=== PATIENT | male | born 1990 | race American Indian/Alaskan Native ===

== ENCOUNTER 2020-10-14 15:42 | Emergency (ER) | payer SELFPAY ==
--- NOTE | 2020-10-14 16:22 | Event Note ---
ED Screening Note Date of service: 10/14/20 Time: 16:18 ED Screening Note: 30-year-old -Stateless male that is morbid obese presents to the emergency room for intermittent chest pain that is dull and achy that is gotten worse today. Patient states over the last 2 months he has noticed an increase in episodes of chest pain. 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 Patient is currently on no no primary care provider. He does not have any shortness of breath. Patient does admit that he has gained some weight in the last year secondary to Covid. Denies any nausea no vomiting no radiation to the jaw or left arm but does have radiation to the back. Nothing really makes it worse nothing really makes it better but does admit he is under increased stress. Patient denies any past medical history reports he does not take any medications on a daily basis and does not have a primary care provider. This initial assessment/diagnostic orders/clinical plan/treatment(s) is/are subject to change based on patients health status, clinical progression and re- assessment by fellow clinical providers in the ED. Further treatment and workup at subsequent clinical providers discretion. Patient/guardian urged not to elope from the ED as their condition may be serious if not clinically assessed and managed. Initial orders include:
--- NOTE | 2020-10-14 16:40 | XRay Report ---
XR chest routine 2V INDICATION / CLINICAL INFORMATION: Chest Pain. COMPARISON: None available. FINDINGS: SUPPORT DEVICES: None. HEART /PULMONARY VASCULATURE: No significant abnormality. LUNGS / PLEURA: No significant pulmonary or pleural abnormality. No pneumothorax. ADDITIONAL FINDINGS: No significant additional findings. IMPRESSION: 1. No acute findings. Signer Name: Jakob Savage MD Signed: 10/14/2020 4:35 PM Workstation Name: [id number]
[2020-10-14 16:55] LABS: Basophils # (Auto) 0.1 K/mm3 (0.0-0.1); Basophils % (Auto) 0.7 % (0.0-1.8); Eosinophils % (Auto) 0.5 % (0.0-4.3); Hematocrit 43.9 % (35.5-45.6); Hemoglobin 14.8 gm/dl (11.8-15.2); Lymphocytes # (Auto) 2.4 K/mm3 (1.2-5.4); Lymphocytes % (Auto) 30.4 % (13.4-35.0); Mean Corpuscular HGB Conc 34 % (32-34); Mean Corpuscular Volume 89 fl (84-94); Monocytes # (Auto) 0.6 K/mm3 (0.0-0.8); Monocytes % (Auto) 7.8 % (0.0-7.3); Platelet Count 253 K/mm3 (140-440); Red Blood Count 4.96 M/mm3 (3.65-5.03); Red Cell Distribution Width 12.5 % (13.2-15.2)
[2020-10-14 17:14] LABS: Alanine Aminotransferase 21 units/L (7-56); Albumin 4.9 g/dL (3.9-5); BUN/Creatinine Ratio 11; Blood Urea Nitrogen 11 mg/dL (9-20); Calcium 9.8 mg/dL (8.4-10.2); Hemolysis Index 7
--- NOTE | 2020-10-14 22:13 | Emergency Department Report ---
ED Chest Pain HPI - General Chief Complaint: Chest Pain Stated Complaint: CHEST PAIN Time Seen by Provider: 10/14/20 21:53 Source: patient Mode of arrival: Ambulatory Limitations: No Limitations - History of Present Illness Initial Comments: 30-year-old male, no past medical history, presents to ED with an episode of chest pain. 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 Patient states the pain radiated to his back, underneath the right shoulder blade. Patient states the pain lasted for appr oximately 5 to 10 minutes and then resolved. He denies any associated nausea or vomiting, denies shortness of breath. He denies any leg pain or swelling. Patient states he has been having chest pain off and on for approximately 2 months now. Patient reports positive tobacco use. He denies any chest pain currently. MD Complaint: chest pain -: This afternoon Pain Location: substernal Pain Radiation: back Severity: moderate Quality: sharp Consistency: now resolved Improves With: nothing Worsens With: nothing re: diaphoresis. denies: nausea, vomting, dyspnea Other Symptoms: denies: cough, fever, leg swelling - Related Data Allergies Allergy/AdvReac Type Severity Reaction Status Date / Time grass pollen Allergy Swelling Verified 10/14/20 15:44 Heart Score - HEART Score History: Slightly suspicious EKG: Normal Age: < 45 Risk factors: 1-2 risk factors Troponin: < normal limit HEART Score: 1 ED Review of Systems ROS: Stated complaint: CHEST PAIN Other details as noted in HPI Comment: All other systems reviewed and negative Constitutional: denies: chills, fever Respiratory: denies: cough, shortness of breath Cardiovascular: chest pain Gastrointestinal: denies: nausea, vomiting Musculoskeletal: other (Denies leg pain or swelling) ED Past Medical Hx - Past Medical History Previous Medical History?: No - Surgical History Past Surgical History?: Yes Additional Surgical History: cyst removal - Social History Smoking Status: Current Every Day Smoker Substance Use Type: None ED Physical Exam - General Limitations: No Limitations General appearance: alert, in no apparent distress, obese - Head Head exam: Present: atraumatic, normocephalic - Eye Eye exam: Present: normal appearance, EOMI - ENT ENT exam: Present: mucous membranes moist - Neck Neck exam: Present: normal inspection - Respiratory Respiratory exam: Present: normal lung sounds bilaterally. Absent: respiratory distress - Cardiovascular Cardiovascular Exam: Present: regular rate, normal rhythm - GI/Abdominal GI/Abdominal exam: Present: soft. Absent: distended, tenderness - Extremities Exam Extremities exam: Present: normal inspection. Absent: pedal edema, calf tenderness - Neurological Exam Neurological exam: Present: alert, oriented X3 - Psychiatric Psychiatric exam: Present: normal affect, normal mood - Skin Skin exam: Present: warm, dry, intact, normal color ED Course Vital Signs 10/14/20 10/14/20 15:44 23:19 Temperature 97.9 F 98.2 F Pulse Rate 72 77 Respiratory 18 18 Rate Blood Pressure 166/99 Blood Pressure 152/99 [Left] O2 Sat by Pulse 100 99 Oximetry ED Medical Decision Making - Lab Data Result diagrams: 10/14/20 16:43 10/14/20 16:43 - EKG Data -: EKG Interpreted by In EKG shows normal: sinus rhythm, axis, intervals, QRS complexes, ST-T waves Rate: normal - EKG Data Interpretation: no acute changes - Radiology Data Radiology results: report reviewed, image reviewed - Medical Decision Making 30-year-old male presents to ED with substernal chest pain that lasted approximately 5 to 10 minutes and occurred earlier in the day. Patient currently chest pain-free. EKG shows no ST changes. Troponin negative x2. D- dimer is normal. Chest x-ray is unremarkable. Patient will be discharged at this time. Information faxed to [facility] for urgent cardiology follow-up. Outpatient follow-up advised, return precautions given. - Differential Diagnosis ACS, pancreatitis, pneumonia Critical care attestation.: If time is entered above; I have spent that time in minutes in the direct care of this critically ill patient, excluding procedure time. ED Disposition Clinical Impression: Chest pain, Hypertension Disposition: - TO HOME OR SELFCARE Is pt being admited?: No Condition: Stable Instructions: Nonspecific Chest Pain, Adult, Chest Pain (ED), Hypertension (ED) Referrals: PRIMARY MD VANDANA [Primary Care Provider] - 3-5 Days [facility] [Provider Group] - 3-5 Days STANISLAV ZENDEJAS MD [Staff Physician] - 3-5 Days HELIO MATA MD [Staff Physician] - 3-5 Days Time of Disposition: 23:12
[2020-10-14 22:56] LABS: INR 1.04 (0.87-1.13)
[2020-10-14 23:22] VITALS: BP 152/99
== END 2020-10-14 23:20 | disposition home or self-care (01) ==
LOC: ED 15:42
DX: I10 Essential (primary) hypertension (principal); R07.9 Chest pain, unspecified; F17.200 Nicotine dependence, unspecified, uncomplicated; Z98.890 Other specified postprocedural states; Z88.8 Allergy status to other drugs, medicaments and biological substances
CPT/HCPCS: 36415; 71046; 80053; 83690; 84484; 85025; 85379; 85610; 85730; 93005